=== PATIENT | male | born 1980 | race Caucasian/White ===

== ENCOUNTER 2017-11-05 02:14 | Emergency (ER) | payer MEDICAID, OTHER ==
[2017-11-05] MEDS ORDERED: LORazepam 1 MG TAB PO ONE (03:16)
[2017-11-05] MEDS ORDERED: LORAZEPAM 1 MG PREPACK#4 BTL TAKEHOME ONE (04:43)
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
[2017-11-05 04:54] VITALS: BP 155/105
== END 2017-11-05 04:53 | disposition home or self-care (01) ==
DX: F41.9 Anxiety disorder, unspecified (principal)

== ENCOUNTER 2017-11-07 19:13 | Emergency (ER) | payer MEDICAID, OTHER ==
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
[2017-11-07] MEDS ORDERED: NS 1,000 ML IV ONE (19:19)
[2017-11-07] MEDS ORDERED: CHLORDIAZEPOXIDE 25MG PREPK#6 BTL TAKEHOME ONE (21:52)
[2017-11-07 22:10] VITALS: BP 110/61
== END 2017-11-07 22:10 | disposition home or self-care (01) ==
LOC: EDUNIT#
DX: F10.920 Alcohol use, unspecified with intoxication, uncomplicated (principal); E86.9 Volume depletion, unspecified
CPT/HCPCS: 80305; G0480